=== PATIENT | female | born 1995 | race Caucasian/White ===

== ENCOUNTER 2021-08-22 20:27 | Emergency (ER) | payer OTHER ==
[~2021-08-22] VITALS: Ht 154.9 cm; Wt 136.1 kg
[2021-08-22] MEDS ORDERED: EPINEPHRINE ONE (20:47)
[2021-08-22] MEDS ORDERED: PEPCID IV STA (20:53)
[2021-08-22] MEDS ORDERED: EPINEPHrine SQ STA (20:53)
[2021-08-22] MEDS ORDERED: SOLU-MEDROL IV STA (20:53)
[2021-08-22] MEDS ORDERED: BENADRYL IV STA (20:53)
[2021-08-22] MEDS ORDERED: SOLU-MEDROL ONE (21:31)
[2021-08-22] MEDS ORDERED: BENADRYL ONE (21:31)
[2021-08-22] MEDS ORDERED: PEPCID IV ONE (21:31)
[2021-08-22] MEDS ORDERED: KEPPRA 100 ML IV STA (22:03)
[2021-08-22] MEDS ORDERED: KEPPRA 100 ML IV ONE (22:13)
[2021-08-22 22:33] VITALS: BP 140/104
--- NOTE | 2021-08-22 23:18 | ER.PDOC ---
General Chief Complaint: Requesting Medical Care Stated Complaint: ALLERGIC REACTION Time seen by MD: 22:00 Source: patient Exam Limitations: no limitations History of Present Illness Initial Comments Shortness of breath and throat discomfort after eating Muffin containing coconut. 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 Severity: moderate Associated Symptoms: throat swollen, mild SOB Identified Cause: yes Vital Signs First Vital Signs Date Time Temp Pulse Resp B/P (MAP) Pulse Ox O2 Delivery O2 Flow Rate FiO2 08/22/21 22:33 98.6 89 28 99 Last Vital Signs Date Time Temp Pulse Resp B/P (MAP) Pulse Ox O2 Delivery O2 Flow Rate FiO2 08/22/21 22:33 98.6 89 28 99 Past Medical History Medical History: other (Seizure) Surgical History: Family History Significant Family History: no pertinent family hx Social History Smoking: non-smoker Alcohol Use: none Drug Use: none Constitutional: no symptoms reported EENTM: see HPI Respiratory: see HPI Cardiovascular: no symptoms reported Gastrointestinal: no symptoms reported Genitourinary: no symptoms reported All Other Systems: Reviewed and Negative Physical Exam General Appearance: alert, no distress HEENT: ENT nml inspection, pharynx, voice nml Skin: no rash, nml color, warm/dry Extremities: non-tender, nml ROM, no edema Neck: nml inspection Respiratory: no resp. distress, breath sounds nml CVS: reg. rate & rhythm, heart sounds nml Abdomen: non-tender, no organomegaly NEURO/PSYCH: oriented x 3, CN's nml as tested, motor nml, sensation nml, mood/a ffect nml Results/Orders Results/Orders Orders - DEBRA HALL MD Epinephrine (Epinephrine) (08/22/21 20:53) Diphenhydramine Hcl (Benadryl) (08/22/21 20:53) Methylprednisolone Sod Succ (Solu-Medrol (08/22/21 20:53) Famotidine/Pf (Pepcid) (08/22/21 20:53) Diphenhydramine Hcl (Benadryl) (08/22/21 21:31) Methylprednisolone Sod Succ (Solu-Medrol (08/22/21 21:31) Famotidine/Pf (Pepcid) (08/22/21 21:31) Levetiracetam 500mg/100 Nacl (Keppra) (08/22/21 22:03) Levetiracetam 500mg/100 Nacl (Keppra) (08/22/21 22:13) Vital Signs Date Time Temp Pulse Resp B/P (MAP) Pulse Ox O2 Delivery O2 Flow Rate FiO2 08/22/21 22:33 98.6 89 28 99 08/22/21 22:33 98.6 89 28 08/22/21 22:33 98.6 89 28 99 Administered Medications Medications (Trade) Dose Ordered Sig/Jazmin Route PRN Reason Start Time Stop Time Status Last Admin Dose Admin Diphenhydramine HCl (Benadryl) 50 mg STAT STAT IV 08/22/21 20:53 08/22/21 20:55 DC 08/22/21 21:43 50 MG Epinephrine HCl (EPINEPHrine) 0.3 mg STAT STAT SQ 08/22/21 20:53 08/22/21 20:55 DC 08/22/21 20:50 0.3 MG Famotidine (Pepcid) 20 mg STAT STAT IV 08/22/21 20:53 08/22/21 20:55 DC 08/22/21 21:43 20 MG Methylprednisolone Sodium Succinate (Solu-Medrol) 125 mg STAT STAT IV 08/22/21 20:53 08/22/21 20:55 DC 08/22/21 21:43 125 MG Progress Progress Patient received EpiPen, Solu-Medrol, Pepcid and Benadryl. She is feeling better. Her symptoms resolved. While here, she had a seizure because she has not taken her seizure medication for 4 days. She received Keppra 500 mg IV. She did not have another seizure. She is discharged home in stable condition. ER DEPART Departure Time of Disposition: 23:16 Disposition: 01 HOME / SELF CARE / HOMELESS Impression: Primary Impression: Acute allergic reaction Additional Impression: Seizure Condition: Improved Referrals: PCP,UNKNOWN (PCP) PRIMARY CARE PROVIDER Additional Instructions: Prednisone Benadryl Pepcid Keppra EpiPen Follow-up with your PCP in 2 to 3 days Return to ED if worsening symptoms or concerns Duration or Time Spent with Pa: 30 min Critical Care Note Total Time (mins): 30 Problem Qualifiers Primary Impression: Acute allergic reaction Encounter type: initial encounter Qualified Codes: T78.40XA - Allergy, unspecified, initial encounter ISABEL,DEBRA Fonseca MD Aug 22, 2021 23:18
[2021-08-22 23:25] VITALS: BP 124/82
== END 2021-08-22 23:29 | disposition home or self-care (01) ==
LOC: ER 20:27
DX: T78.40XA Allergy, unspecified, initial encounter (principal); R56.9 Unspecified convulsions; Z79.52 Long term (current) use of systemic steroids; Z79.899 Other long term (current) drug therapy; X58.XXXA Exposure to other specified factors, initial encounter
CPT/HCPCS: 96372; 96374; 96375; 99291; J0171; J1200; J2930; J3490; J1953